=== PATIENT | male | born 1955 | race Asian ===

== ENCOUNTER 2018-07-11 21:24 | Emergency (ER) | payer OTHER ==
[~2018-07-11] VITALS: Ht 177.8 cm; Wt 118.4 kg
[2018-07-11 22:09] LABS: Hemoglobin 9.6 g/dL (13.5-17.5)
[2018-07-11 22:11] LABS: White Blood Cell 8.7 10^3/uL (4.4-10.8)
[2018-07-11 22:18] LABS: Hematocrit 28.4 % (41.0-53.0); Mean Corpuscular Hemoglobin 35.1 pg (28.0-32.0); Mean Corpuscular Volume 103.1 fL (80.0-100.0); Platelet Count (auto) 200 10^3/uL (140-450); Red Blood Cells 2.75 10^6/uL (4.5-5.90); Red Cell Distribution Width 17.2 % (11.8-14.3)
[2018-07-11 22:21] LABS: Basophils % (manual) 0 (0.0-2.0); Blast Cells 0; Metamyelocytes % 0; Myelocytes % 0; Promyelocytes % 0; Reactive Lymphocytes 0
[2018-07-11 22:29] LABS: Albumin 2.7 g/dL (3.4-5.0); Calcium 7.3 mg/dL (8.5-10.1); Magnesium 2.3 mg/dL (1.6-2.6)
[2018-07-11 22:31] LABS: INR 0.89 (0.9-1.15); Partial Thromboplastin Time 24.2 sec (23.78-33.04); Prothrombin Time 9.6 sec (9.27-12.13)
[2018-07-11 22:34] LABS: BUN/Creatinine Ratio 8.8; Bilirubin, Total 0.4 mg/dL (0.2-1.0); Total Protein 5.6 g/dL (6.4-8.2)
[2018-07-11 22:43] LABS: Band Neutrophils % (manual) 4; Eosinophils % (manual) 4 (0-7); Lymphocytes % (manual) 7 (10.0-50.0); Monocytes % (manual) 7 (0-12)
[2018-07-11] MEDS ORDERED: DEXTROSE (50%) 50ML SYRG IV ONE (23:00)
[2018-07-11] MEDS ORDERED: SODIUM POLYSTYRENE SULF 15GM/60ml SUSP or POWDER PO ONE (23:00)
[2018-07-11] MEDS ORDERED: CALCIUM GLUC 4.65meq/50ml D5AE 50 ML IV ONE (23:00)
[2018-07-11] MEDS ORDERED: SODIUM BICARBONATE 8.4 % INJ 50ML VIAL IV ONE (23:00)
[2018-07-11] MEDS ORDERED: InsuLIN REG 1unit/0.01ml Soln (100units/ml) IV ONE (23:00)
[2018-07-12 00:03] LABS: Urine Bacteria MANY /hpf (None Seen); Urine Blood 2+ /uL (Negative); Urine Specific Gravity 1.031 (1.001-1.035); Urine WBC 359 /hpf (0 - 3); Urine WBC Clumps PRESENT /hpf (None Seen)
[2018-07-12 00:09] LABS: Alcohol, Urine < 3.0 mg/dL (0-5); Amphetamine Screen, Urine NEGATIVE (NEGATIVE); Barbiturate Scree,Urine NEGATIVE (NEGATIVE); Benzodiazephine Screen, Urine NEGATIVE (NEGATIVE); Cannabinoid Screen, Urine NEGATIVE (NEGATIVE); Cocaine Screen, Urine NEGATIVE (NEGATIVE); Opiate Scree,Urine NEGATIVE (NEGATIVE); Phencyclidine Screen, Urine NEGATIVE (NEGATIVE)
[2018-07-12] MEDS ORDERED: cefTRIAXone 1GM/50ML D5W 50 ML IV ONE (00:30)
[2018-07-12] MEDS ORDERED: DEXTROSE 50% SYRINGE 50 ML IV ONE (00:47)
[2018-07-12] MEDS ORDERED: DEXTROSE (50%) 50ML SYRG IV ONE (02:00)
[2018-07-12 04:38] VITALS: BP 137/63
== END 2018-07-12 04:41 | disposition short-term general hospital (02) ==
LOC: EDBD 21:24 → ER 21:31
DX: R42 Dizziness and giddiness (principal); E87.5 Hyperkalemia; N39.0 Urinary tract infection, site not specified; E11.22 Type 2 diabetes mellitus with diabetic chronic kidney disease; I12.0 Hypertensive chronic kidney disease with stage 5 chronic kidney disease or end stage renal disease; N18.6 End stage renal disease; N17.9 Acute kidney failure, unspecified; J44.9 Chronic obstructive pulmonary disease, unspecified; I48.91 Unspecified atrial fibrillation; Z99.2 Dependence on renal dialysis; Z79.4 Long term (current) use of insulin
CPT/HCPCS: 36415; 70450; 71045; 80053; 80307; 81001; 82962; 83735; 83880; 84132; 84443; 84484; 85007; 85027; 85610; 85730; 93005; 96365; 96368; 96375; 96376; 99285; J0610; J0696; J1815; J7042

== ENCOUNTER 2018-10-13 14:31 | Emergency (ER) | payer OTHER ==
[~2018-10-13] VITALS: Ht 182.9 cm; Wt 117.9 kg
[2018-10-13 15:03] LABS: Basophils # (auto) 0.1 uL; Basophils % (auto) 1.3 % (0.0-2.0); Eosinophils # (auto) 0.3 uL; Eosinophils % (auto) 3.3 % (0.0-7.0); Hematocrit 38.9 % (41.0-53.0); Lymphocytes # (auto) 0.3 uL; Lymphocytes % (auto) 3.4 % (10.0-50.0); Mean Corpuscular Hemoglobin 33.3 pg (28.0-32.0); Mean Corpuscular Hgb Conc. 33.4 g/dL (32.0-36.0); Mean Corpuscular Volume 99.8 fL (80.0-100.0); Monocytes # (auto) 1.1 uL; Monocytes % (auto) 10.3 % (0.0-12.0); Neutrophils # (auto) 8.3 uL; Neutrophils % (auto) 81.7 % (37.0-80.0); Nucleated Red Blood Cells % 0.1 %; Platelet Count (auto) 271 10^3/uL (140-450); Red Cell Distribution Width 17.1 % (11.8-14.3); White Blood Cell 10.2 10^3/uL (4.4-10.8)
[2018-10-13 15:18] LABS: Albumin 3.2 g/dL (3.4-5.0); Anion Gap 13 (5-15); Blood Urea Nitrogen 38 mg/dL (7-18); Calcium 8.2 mg/dL (8.5-10.1); Carbon Dioxide 29 mmol/L (21-32); Chloride 93 mmol/L (98-107); Glucose 135 mg/dL (74-106); Potassium 3.1 mmol/L (3.5-5.1); Sodium 135 mmol/L (136-145)
[2018-10-13 15:20] LABS: Aspartate Aminotransferase 9 U/L (15-37); BUN/Creatinine Ratio 5.8; GFR African American 11 mL/min; GFR Non-African American 9 mL/min
[2018-10-13] MEDS ORDERED: SODIUM CHLORIDE 0.9% 500 ML IVB ONE (15:38)
[2018-10-13 15:59] LABS: Alanine Aminotransferase 21 U/L (16-61); Alkaline Phosphatase 63 U/L (45-117); Bilirubin, Total 0.5 mg/dL (0.2-1.0); Total Protein 7.7 g/dL (6.4-8.2)
[2018-10-13 16:11] LABS: INR 0.85 (0.9-1.15); Partial Thromboplastin Time 25.6 sec (23.64-32.05)
[2018-10-13 20:07] VITALS: BP 137/77
[2018-10-13] MEDS ORDERED: POTASSIUM CHL 20 Meq TABLET PO ONE (20:15)
== END 2018-10-13 20:21 | disposition short-term general hospital (02) ==
LOC: EDBD 14:31 → ER 14:36
DX: I12.0 Hypertensive chronic kidney disease with stage 5 chronic kidney disease or end stage renal disease (principal); E11.22 Type 2 diabetes mellitus with diabetic chronic kidney disease; N18.6 End stage renal disease; R79.89 Other specified abnormal findings of blood chemistry; M10.9 Gout, unspecified; D64.9 Anemia, unspecified; Z99.2 Dependence on renal dialysis; Z95.810 Presence of automatic (implantable) cardiac defibrillator
CPT/HCPCS: 36415; 70450; 71045; 80053; 82962; 83735; 84484; 85025; 85610; 85730; 93005; 94761; 96360; 99291

== ENCOUNTER 2019-04-06 09:53 | Emergency (ER) | payer OTHER ==
[~2019-04-06] VITALS: Ht 177.8 cm; Wt 117.9 kg
[2019-04-06] MEDS ORDERED: SODIUM CHLORIDE 0.9% 1,000 ML IV ONE (11:13)
[2019-04-06 11:31] LABS: Basophils # (auto) 0.1 uL; Eosinophils # (auto) 0.2 uL; Lymphocytes # (auto) 0.2 uL; Lymphocytes % (auto) 1.9 % (10.0-50.0); Monocytes # (auto) 1.3 uL; Neutrophils # (auto) 7.6 uL; Nucleated Red Blood Cells % 0.1 %
[2019-04-06 11:35] LABS: Basophils % (auto) 0.8 % (0.0-2.0); Eosinophils % (auto) 1.8 % (0.0-7.0); Hematocrit 35.3 % (41.0-53.0); Mean Corpuscular Hemoglobin 34.6 pg (28.0-32.0); Mean Corpuscular Volume 101.9 fL (80.0-100.0); Monocytes % (auto) 14.1 % (0.0-12.0); Neutrophils % (auto) 81.4 % (37.0-80.0); Platelet Count (auto) 181 10^3/uL (140-450); Red Blood Cells 3.46 10^6/uL (4.5-5.90); Red Cell Distribution Width 17.9 % (11.8-14.3); White Blood Cell 9.3 10^3/uL (4.4-10.8)
[2019-04-06 11:51] LABS: Albumin 3.2 g/dL (3.4-5.0); Calcium 8.2 mg/dL (8.5-10.1); Potassium 4.1 mmol/L (3.5-5.1)
[2019-04-06 11:57] LABS: BUN/Creatinine Ratio 3.9; Bilirubin, Total 0.8 mg/dL (0.2-1.0); Total Protein 6.8 g/dL (6.4-8.2)
[2019-04-06 15:43] VITALS: BP 118/63
== END 2019-04-06 15:43 | disposition home or self-care (01) ==
LOC: EDBD 09:53 → ER 09:58
DX: E11.22 Type 2 diabetes mellitus with diabetic chronic kidney disease (principal); I12.0 Hypertensive chronic kidney disease with stage 5 chronic kidney disease or end stage renal disease; N18.6 End stage renal disease; D63.1 Anemia in chronic kidney disease; E44.1 Mild protein-calorie malnutrition; F41.9 Anxiety disorder, unspecified; Z99.2 Dependence on renal dialysis; Z79.4 Long term (current) use of insulin; Z68.37 Body mass index [BMI] 37.0-37.9, adult; Z91.041 Radiographic dye allergy status
CPT/HCPCS: 36415; 70450; 71045; 80053; 83735; 84484; 85025; 93005; 96360; 96361

== ENCOUNTER 2024-09-30 08:32 | Inpatient (IN) | payer OTHER ==
[2024-09-30] VITALS (7 sets, daily range): BP systolic 150–152; BP diastolic 70–74; PULSE 66–74; RESP 12–18; TEMP 97.9–98.7; O2SAT 96–100
[~2024-09-30] VITALS: Ht 175.3 cm; Wt 99.8 kg
--- NOTE | 2024-09-30 09:08 | ED.PDOC ---
History of Present Illness HPI Comments 60 year old male presents to the ED via EMS with a chief complaint of syncope episode onset today (09/30/24). PMHx COPD, cancer, a-fib, DM, Hypotension, asthma. Patient gets dialysis Thursday, Thursday, Thursday. Per , patient finished dialysis treatment today, sat in the car when he experienced syncopal episode. informed dialysis staff, began compressions on patient when he woke up. Patient states he currently has no complaints. Denies chest pain, shortness of breath, dizziness, weakness, nausea, vomiting, abdominal pain, headache. No other symptoms or modifying factors present at this time. Chief Complaint: Syncope Time Seen by MD: 09:00 Reviewed Notes: Medications, Allergies Allergies: Coded Allergies: Iodine (Verified Allergy, Unknown, 08/14/15) Uncoded Allergies: CONTRAST (Allergy, Unknown, 12/11/15) Information Source: Patient, Emergency Med Personnel, Spouse Mode of Arrival: EMS Severity: Moderate Timing: Minutes Duration: Since onset Prehospital treatment: None Past Medical History PAST MEDICAL HISTORY: AFIB, Cancer, COPD, DM, ESRD, Hypotension Surgical History: Denies all surgeries Family History Family History: Reviewed,noncontributory to illness, No family hx of Cancer, No family hx of DM, No family hx of Heart korin, No family hx of HTN, No family hx ofKidney korin, No family hx of Liver korin, No family hx of Lung korin, No family hx of Stroke Social History Smoker: Non-Smoker Alcohol: Denies ETOH Use Drugs: Denies Drug Use Lives In: Home Constitutional: denies: chills, diaphoresis, fatigue, fever, malaise, sweats, weakness, others EENTM: denies: blurred vision, double vision, ear bleeding, ear discharge, ear drainage, ear pain, ear ringing, eye pain, eye redness, hearing loss, mouth pain, mouth swelling, nasal discharge, nose bleeding, nose congestion, nose pain, photophobia, tearing, throat pain, throat swelling, voice changes, others Respiratory: denies: cough, hemoptysis, orthopnea, SOB at rest, shortness of breath, SOB with excertion, stridor, wheezing, others Cardiovascular: denies: chest pain, dizzy spells, diaphoresis, Dyspnea on exertion, edema, irregular heart beat, left arm pain, lightheadedness, palpitations, PND, syncope, others Gastrointestinal: denies: abdomen distended, abdominal pain, blood streaked bowels, constipated, diarrhea, dysphagia, difficulty swallowing, hematemesis, melena, nausea, poor appetite, poor fluid intake, rectal bleeding, rectal pain, vomiting, others Genitourinary: denies: burning, dysuria, flank pain, frequency, hematuria, incontinence, penile discharge, penile sore, pain, testicle pain, testicle swelling, urgency, others Neurological: reports: others (syncope); denies: dizziness, fainting, headache, left sided numbness, left sided weakness, numbness, paresthesia, pre-existing deficit, right sided numbness, right sided weakness, seizure, speech problems, tingling, tremors, weakness Musculoskeletal: denies: back pain, gout, joint pain, joint swelling, muscle pain, muscle stiffness, neck pain, others Integumetry: denies: bruises, change in color, change in hair/nails, dryness, laceration, lesions, lumps, rash, wounds, others Allergic/Immunocompromised: denies: Difficulty Healing, Frequent Infections, Hives, Itching, others Hematologic/Lymphatic: denies: anemia, blood clots, easy bleeding, easy bruising, swollen glands, others Endocrine: denies: excessive hunger, excessive sweating, excessive thirst, excessive urination, flushing, intolerance to cold, intolerance to heat, unexplained weight gain, unexplained weight loss, others Psychiatric: denies: anxiety, bipolar disorder, depression, hopeless, panic disorder, schizophrenia, sleepless, suicidal, others All Other Systems: Reviewed and Negative Physical Exam General Appearance: No Apparent Distress, Normal HEENT: Normal ENT Inspection, Pharynx Normal, TMs Normal Neck: Full Range of Motion, Non-Tender, Normal, Normal Inspection Respiratory: Chest Non-Tender, Lungs Clear, No Accessory Muscle Use, No Respiratory Distress, Normal Breath Sounds Cardiovascular: No Edema, No JVD, No Murmur, No Gallop, Normal Peripheral Pulses, Regular Rate/Rhythm Breast Exam: Deferred Gastrointestinal: No Organomegaly, Non Tender, No Pulsatile Mass, Normal Bowel Sounds, Soft Genitalia: Deferred Pelvic: Deferred Rectal: Deferred Extremities: No calf tenderness, Normal capillary refill, Normal inspection, Normal range of motion, Non-tender, No pedal edema Musculoskeletal : Apperance: Normal Neurologic: Alert, smoking tobacco packer hand II-XII nml as Tested, No Motor Deficits, Normal Affect, Normal Mood, No Sensory Deficits Cerebellar Function: Normal Reflexes: Normal Skin: Dry, Normal Color, Warm Lymphatic: No Adenopathy Was a procedure done? Was a procedure done?: No Differential Dx Considerations may include: CVA, ACS, WI, electrolyte abnormality, infectious etiology, shock X-Ray, Labs, Meds, VS Vital Signs Date Time Temp Pulse Resp B/P (MAP) Pulse Ox O2 Delivery O2 Flow Rate FiO2 09/30/24 09:00 67 19 96/40 (58) 95 09/30/24 08:45 68 12 100 Room Air* 0 21 09/30/24 08:38 97.9 67 24 108/54 (72) 95 97.9 Lab Test 09/30/24 10:10 09/30/24 09:26 Range/Units Troponin I High Sensitivity 64 *H 76 *H </=54 ng/L White Blood Count 9.6 4.4-10.8 10^3/uL Red Blood Count 3.29 L 4.5-5.90 10^6/uL Hemoglobin 11.7 L 13.5-17.5 g/dL Hematocrit 34.6 L 41.0-53.0 % Mean Corpuscular Volume 105.0 H 80.0-100.0 fL Mean Corpuscular Hemoglobin 35.4 H 28.0-32.0 pg Mean Corpuscular Hemoglobin Concent 33.7 32.0-36.0 g/dL Red Cell Distribution Width 18.3 H 11.8-14.3 % Platelet Count 194 140-450 10^3/uL Mean Platelet Volume 8.4 6.9-10.8 fL Neutrophils (%) (Auto) 78.1 37.0-80.0 % Lymphocytes (%) (Auto) 3.1 L 10.0-50.0 % Monocytes (%) (Auto) 14.9 H 0.0-12.0 % Eosinophils (%) (Auto) 3.2 0.0-7.0 % Basophils (%) (Auto) 0.7 0.0-2.0 % Neutrophils # (Auto) 7.5 1.6-8.6 10 ^3/uL Lymphocytes # (Auto) 0.3 L 0.4-5.4 10 ^3/uL Monocytes # (Auto) 1.4 H 0-1.3 10 ^3/uL Eosinophils # (Auto) 0.3 0-0.8 10 ^3/uL Basophils # (Auto) 0.1 0-0.2 10 ^3/uL Nucleated Red Blood Cells 0.2 % Sodium Level 137 136-145 mmol/L Potassium Level 4.0 3.5-5.1 mmol/L Chloride Level 93 L 98-107 mmol/L Carbon Dioxide Level 33 H 20-31 mmol/L Anion Gap 11 5-15 Blood Urea Nitrogen 20 9-23 mg/dL Creatinine 4.56 H 0.700-1.30 mg/dL Glomerular Filtration Rate Calc 14 >90 mL/min BUN/Creatinine Ratio 4.4 L 10.0-20.0 Serum Glucose 176 H 74-106 mg/dL Lactic Acid Level 4.2 *H 0.4-2.0 mmol/L Calcium Level 10.1 8.7-10.4 mg/dL Time of 1ST Reevaluation: 09:30 Reevaluation 1ST: Unchanged Patient Education/Counseling: Diagnosis, Treatment, Prognosis Family Education/Counseling: Diagnosis, Treatment, Prognosis Additional Information The following tests were ordered, and results were reviewed by me: BMP, CBC, LA W/ REFLEX, TROP -x3, XY CHEST, CT HEAD WO CONTRAST Additional Information was gathered from interviewing the following independent historians: EMS, I reviewed and agreed with the following test results read by other providers: XY CHEST, CT HEAD WO CONTRAST I discussed treatment and results with medical personnel and: patient, Comprehensive systems review obtained and negative except for what is stated in the HPI. Departure 1 Departure Time of Disposition: 11:08 ([place] Authorization to Admit here: [id number] ient presents after CPR in the field. Patient hypotensive and unstable for transfer. Patient is dialysis patient had an clinically volume overload so we will not give a full fluid bolus. We will empirically cover patient with antibiotics and admit patient for further workup) Impression: Primary Impression: Syncope Qualified Codes: R55 - Syncope and collapse Additional Impressions: Hypotension Qualified Codes: I95.9 - Hypotension, unspecified Elevated lactic acid level Disposition: ADMITTED INPATIENT Admit to: [facility] Condition: Guarded Critical Care Note Critical Care Time?: Yes Critical care comment: Hypotension Authorized and Performed by: An Lopez MD Total critical care time: Approximately 37 minutes Due to a high probability of clinically significant, life threatening deterioration, the patient required my highest level of preparedness to intervene emergently and I personally spent this critical care time directly and personally managing the patient. This critical care time included obtaining a history; examining the patient; pulse oximetry; ordering and review of studies; arranging urgent treatment with development of a management plan; evaluation of patient's response to treatment; frequent reassessment; and, discussions with other providers. This critical care time was performed to assess and manage the high probability of imminent, life-threatening deterioration that could result in multi-organ failure. It was exclusive of separately billable procedures and treating other patients and teaching time. Please see my other sections and the rest of the note for further information on patient assessment and treatment. Stability Stability form required: No I personally scribed for AN LOPEZ MD ([email or web address]) on 09/30/24 at 09:08. Electronically submitted by Nargis Heck ([email or web address]). I personally scribed for AN LOPEZ MD ([email or web address]) on 09/30/24 at 09:09. Electronically submitted by Nargis Heck ([email or web address]). AN LOPEZ MD September 30, 2024 09:08
--- NOTE | 2024-09-30 09:28 | DVH ---
EXAM: XY CHEST PORTABLE Indication: syncope Technique: Single frontal view of the chest was obtained Comparison: None FINDINGS: Lines and Tubes: Cardiac pacemaker projects over the right chest wall. Lungs: No focal consolidation. Pleura: No effusion. No pneumothorax. Cardiomediastinal contours: Cardiomegaly. Bones: No acute osseous abnormality. Chronic deformity of the right shoulder. IMPRESSION: Cardiomegaly. No acute cardiopulmonary disease.
--- NOTE | 2024-09-30 09:34 | DVH ---
EXAM: CT HEAD WITHOUT CONTRAST HISTORY: syncope COMPARISON: None TECHNIQUE: Axial images of the head were obtained and reformatted in coronal and sagittal planes. All CT scans at this medical facility are performed using dose modulation techniques as appropriate t o a performed exam including the following: Automated exposure control was utilized; adjustment of th e MA and/or KV according to patient size; and use of iterative reconstruction technique. CT Dose: CTDI volume is 65 mGy. Dose-length product is 1234 mGy*cm FINDINGS: There is no evidence of acute intracranial hemorrhage, mass, mass effect midline shift. There is no h ydrocephalus or extra-axial fluid collection. Mathews-white matter differentiation is maintained. The visualized paranasal sinuses and mastoid air cells are clear. The calvarium is intact. IMPRESSION: 1. No acute intracranial process. HS:Y
[2024-09-30 09:45] LABS: Basophils # (auto) 0.1 10 ^3/uL (0-0.2); Basophils % (auto) 0.7 % (0.0-2.0); Eosinophils # (auto) 0.3 10 ^3/uL (0-0.8); Eosinophils % (auto) 3.2 % (0.0-7.0); Hematocrit 34.6 % (41.0-53.0); Hemoglobin 11.7 g/dL (13.5-17.5); Lymphocytes # (auto) 0.3 10 ^3/uL (0.4-5.4); Lymphocytes % (auto) 3.1 % (10.0-50.0); Mean Corpuscular Hemoglobin 35.4 pg (28.0-32.0); Mean Corpuscular Hgb Conc. 33.7 g/dL (32.0-36.0); Monocytes # (auto) 1.4 10 ^3/uL (0-1.3); Monocytes % (auto) 14.9 % (0.0-12.0); Neutrophils # (auto) 7.5 10 ^3/uL (1.6-8.6); Neutrophils % (auto) 78.1 % (37.0-80.0); Nucleated Red Blood Cells % 0.2 %; Platelet Count (auto) 194 10^3/uL (140-450); Red Blood Cells 3.29 10^6/uL (4.5-5.90); Red Cell Distribution Width 18.3 % (11.8-14.3); White Blood Cell 9.6 10^3/uL (4.4-10.8)
[2024-09-30 10:01] LABS: Sodium 137 mmol/L (136-145)
[2024-09-30 10:02] LABS: Calcium 10.1 mg/dL (8.7-10.4)
[2024-09-30 10:04] LABS: Anion Gap 11 (5-15); Carbon Dioxide 33 mmol/L (20-31); Chloride 93 mmol/L (98-107)
[2024-09-30 10:07] LABS: BUN/Creatinine Ratio 4.4 (10.0-20.0); Blood Urea Nitrogen 20 mg/dL (9-23)
[2024-09-30 10:19] LABS: Glucose 176 mg/dL (74-106)
[2024-09-30 10:29] LABS: Lactic Acid w/Reflex 4.2 mmol/L (0.4-2.0)
[2024-09-30] MEDS: VANCOMYCIN 1GM/200ML PM 200 ML IV ONE (11:16)
[2024-09-30] MEDS: SODIUM CHLORIDE 0.9% 1,000 ML IV ONE (11:18)
[2024-09-30] MEDS: SODIUM CHLORIDE 0.9% 500 ML IV ONE (11:55)
[2024-09-30] MEDS: CEFEPIME 2GM/50ML NS 50 ML IV ONE (12:30)
[2024-09-30] MEDS ORDERED: ONDANSETRON HCL 4 MG/2 ML VIAL IV PRN (14:15)
[2024-09-30] MEDS ORDERED: MORPHINE SULFATE INJ 2 MG/ml SYRG IV PRN (14:15)
[2024-09-30] MEDS ORDERED: ACETAMINOPHEN 325 MG TAB PO PRN (14:15)
[2024-09-30] MEDS ORDERED: DEXTROSE (50%) 50ML SYRG IV PRN (14:15)
[2024-09-30] MEDS ORDERED: VANCOMYCIN PER PHARMACY 0 MG IV SCH (14:15)
[2024-09-30] MEDS ORDERED: NITROGLYCERIN 0.4 MG SL TAB SL PRN (14:15)
--- NOTE | 2024-09-30 14:28 | DVHHP2 ---
History of Present Illness Reason for Visit: Syncope History of Present Illness Bro Persaud is a 69-year-old male with past medical history of hypertension, diabetes type 2, COPD, AFib, CHF, ESRD on HD (M/W/F), colon cancer status post resection, and pacemaker who presents to the ED with a syncopal episode in the car after receiving dialysis today. Patient states that he thinks that 2.7 L was pulled out. Sylvia is at the bedside. Patient reports that he was sitting in the car in the passenger seat when he passed out with no strike to the head. Patient's says that she was driving. Patient denies any chest pain, fever, chills, weakness, dizziness, recent trauma or injury, recent sick contacts, recent travels, abdominal pain, nausea, vomiting, or diarrhea. Cardiovascular: AFIB, CHF, HTN Pulmonary: COPD Renal/: Chronic renal failure Endocrine: Diabetes Past Medical History Colon cancer Past Surgical History: Other (Colon resection and pacemaker) Family History: DM, Other (Dad with diabetes and mom with lung issues) Smoke: No ALCOHOL: none Drugs: None Lives: with Family Domestic Violence: Neg Review of Systems Constitutional: Yes: Other Allergies: Coded Allergies: Iodine (Verified Allergy, Unknown, 08/14/15) Uncoded Allergies: CONTRAST (Allergy, Unknown, 12/11/15) Exam Vital Signs Vital Signs Date Time Temp Pulse Resp B/P (MAP) Pulse Ox O2 Delivery O2 Flow Rate FiO2 09/30/24 11:00 66 17 140/82 (101) 99 09/30/24 08:45 Room Air* 0 21 09/30/24 08:38 97.9 97.9 General Appearance: Alert, Oriented X3, Cooperative, No acute distress HEENT: Atraumatic, PERRLA, EOMI, Mucous membr. moist/pink Respiratory: Clear to auscultation, Normal air movement Cardiovascular: Normal S1, Normal S2, No murmurs Abdominal: Normal bowel sounds, Soft, No tenderness Extremities: No clubbing, No cyanosis, Normal pulses Skin: No significant lesion Neuro: Normal speech, Strength at 5/5 X4 ext, Normal tone, Sensation intact Psych/Mental Status: Mental status NL, Mood NL Labs/Xrays Labs Test 09/30/24 12:10 09/30/24 09:26 Range/Units Lactic Acid Level 2.3 *H 0.4-2.0 mmol/L Troponin I High Sensitivity 71 *H </=54 ng/L White Blood Count 9.6 4.4-10.8 10^3/uL Red Blood Count 3.29 L 4.5-5.90 10^6/uL Hemoglobin 11.7 L 13.5-17.5 g/dL Hematocrit 34.6 L 41.0-53.0 % Mean Corpuscular Volume 105.0 H 80.0-100.0 fL Mean Corpuscular Hemoglobin 35.4 H 28.0-32.0 pg Mean Corpuscular Hemoglobin Concent 33.7 32.0-36.0 g/dL Red Cell Distribution Width 18.3 H 11.8-14.3 % Platelet Count 194 140-450 10^3/uL Mean Platelet Volume 8.4 6.9-10.8 fL Neutrophils (%) (Auto) 78.1 37.0-80.0 % Lymphocytes (%) (Auto) 3.1 L 10.0-50.0 % Monocytes (%) (Auto) 14.9 H 0.0-12.0 % Eosinophils (%) (Auto) 3.2 0.0-7.0 % Basophils (%) (Auto) 0.7 0.0-2.0 % Neutrophils # (Auto) 7.5 1.6-8.6 10 ^3/uL Lymphocytes # (Auto) 0.3 L 0.4-5.4 10 ^3/uL Monocytes # (Auto) 1.4 H 0-1.3 10 ^3/uL Eosinophils # (Auto) 0.3 0-0.8 10 ^3/uL Basophils # (Auto) 0.1 0-0.2 10 ^3/uL Nucleated Red Blood Cells 0.2 % Sodium Level 137 136-145 mmol/L Potassium Level 4.0 3.5-5.1 mmol/L Chloride Level 93 L 98-107 mmol/L Carbon Dioxide Level 33 H 20-31 mmol/L Anion Gap 11 5-15 Blood Urea Nitrogen 20 9-23 mg/dL Creatinine 4.56 H 0.700-1.30 mg/dL Glomerular Filtration Rate Calc 14 >90 mL/min BUN/Creatinine Ratio 4.4 L 10.0-20.0 Serum Glucose 176 H 74-106 mg/dL Calcium Level 10.1 8.7-10.4 mg/dL EXAM: CT HEAD WITHOUT CONTRAST HISTORY: syncope COMPARISON: None TECHNIQUE: Axial images of the head were obtained and reformatted in coronal and sagittal planes. All CT scans at this medical facility are performed using dose modulation techniques as appropriate to a performed exam including the following: Automated exposure control was utilized; adjustment of the MA and/or KV according to patient size; and use of iterative reconstruction technique. CT Dose: CTDI volume is 65 mGy. Dose-length product is 1234 mGy*cm FINDINGS: There is no evidence of acute intracranial hemorrhage, mass, mass effect midline shift. There is no hydrocephalus or extra-axial fluid collection. Mathews-white m atter differentiation is maintained. The visualized paranasal sinuses and mastoid air cells are clear. The calvarium is intact. IMPRESSION: 1. No acute intracranial process. EXAM: XY CHEST PORTABLE Indication: syncope Technique: Single frontal view of the chest was obtained Comparison: None FINDINGS: Lines and Tubes: Cardiac pacemaker projects over the right chest wall. Lungs: No focal consolidation. Pleura: No effusion. No pneumothorax. Cardiomediastinal contours: Cardiomegaly. Bones: No acute osseous abnormality. Chronic deformity of the right shoulder. IMPRESSION: Cardiomegaly. No acute cardiopulmonary disease. Assessment/Plan Assessment/Plan Assessment Autonomic imbalance Lactic acidosis rule out sepsis Cardiomegaly Anemia Pacemaker V paced ESRD on HD (M/W/F) History of hypertension History of diabetes type 2 History of COPD History of AFib History of CHF History of hypotension History of colon cancer status post colon resection Plan Admit to tele Chest x-ray noted Troponins noted NS 1.5 L given ED Strict I&Os Daily weights IV antibiotics-cefepime + vancomycin EKG Blood cultures CT head noted Lactic level Hemoglobin A1c ISS and Accu-Cheks Diet Echo ordered Home medications reconciled DVT prophylaxis-not indicated patient ambulating PUD prophylaxis-PPIs Discussed plan of care with patient, patient's spouse, and nurse Nephro consult Plan discussed with: Patient, Spouse My Orders Orders - GILMA GRAY Procedure Category Date Status Time *[facility] CONS 09/30/24 Verified Maylin 14:12 Hemoglobin A1c LAB 09/30/24 Verified 14:12 Glucose Blood PHA 09/30/24 Verified (Accu-Chek Comfort 17:00 Mild Sliding Scale PHA 09/30/24 Verified 17:00 Dextrose 50% Syringe PHA 09/30/24 Verified 14:15 Echo 2d Mode Cardiac US 09/30/24 Verified DOP 14:12 Cefepime 1 Gm PHA 10/01/24 Verified 10:00 Vancomycin Per PHA 09/30/24 Verified Pharmacy 14:15 Admit ADMIT 09/30/24 Verified 14:12 Allergies LAKEISHA 09/30/24 Verified 14:12 Code Status CODE 09/30/24 Verified 14:12 Renal DIET 09/30/24 Verified Standard(2gna,3gk,Lopho) Dinner Ondansetron Hcl PHA 09/30/24 Verified (Zofran) 14:15 Complete Blood Count LAB 10/01/24 Verified 04:00 Comprehensive LAB 10/01/24 Verified Metabolic Panel 04:00 Acetaminophen Tablet PHA 09/30/24 Verified (Tylenol Tablet) 14:15 Sequential [facility]ISHA 09/30/24 Verified Compression Device Nitroglycerin [facility] 09/30/24 Verified Sublingual (Ntrostat 14:15 Morphine Sulfate PHA 09/30/24 Verified Injection 14:15 Stat Ekg For Chest [facility] 09/30/24 Verified Pain 14:12 Notify Md Of Changes [facility] 09/30/24 Verified From Base 14:12 Stockroom Selector For [facility] 09/30/24 Verified 24 Hours 14:12 Emergency Dysrhythmia [facility] 09/30/24 Verified Protocol 14:12 Rhythm Strips Once [facility] 09/30/24 Verified Every Shift 14:12 Oxygen By Nasal RT 09/30/24 Verified Cannula 14:12 Date of Service: September 30, 2024 Billing Provider: GILMA GRAY Common Visit Codes: [id number] INP/OBS CARE (HIGH) GILMA GRAY September 30, 2024 14:28
[2024-09-30] MEDS ORDERED: ALBUTEROL SULF 2.5 MG/0.5ML(0.5%) NEB SOLN NEB PRN (17:45)
[2024-09-30] MEDS: ACCU-CHEK COMFORT CURVE STRIP VI SCH (18:37)
[2024-09-30] MEDS: SEVELAMER 800 MG TAB PO SCH (18:37)
[2024-09-30] MEDS: InsuLIN REG 1unit/0.01ml Soln (100units/ml) SC SCH (18:45)
--- NOTE | 2024-09-30 18:49 | ECG ---
[facility] Test Date: 2024-09-30 Test Time: 08:32:10 Pat Name: RYLEY NOLAN Department: ED Room: 0217T A Gender: M Solar Sales Representative And Assessor: TRESSA : 1955 Requested By: AN NEVAREZ Order Number: [id number] Reading MD: Smooth Henderson Measurements Intervals [place]ella Rate: 66 P: 0 KS: 244 QRS: 262 QRSD: 185 T: 81 QT: 484 QTc: 508 Interpretive Statements Ventricular-paced rhythm No further analysis attempted due to paced rhythm Electronically Signed On 10-01-2024 21:02:03 PDT by Smooth Henderson Please click the below link to view image of tracing.
[2024-09-30] MEDS ORDERED: ZOFR4T PO (19:04)
[2024-09-30] MEDS ORDERED: TIOT1AER2 IN (19:08)
[2024-09-30] MEDS ORDERED: FAMO20TA10 PO (19:08)
[2024-09-30] MEDS ORDERED: FLUT1AER6 IN (19:08)
[2024-09-30] MEDS ORDERED: PRE1T PO (19:08)
[2024-09-30] MEDS ORDERED: SEVE800T8 PO (19:08)
[2024-09-30] MEDS ORDERED: BISO5TAB44 PO (19:30)
[2024-09-30] MEDS ORDERED: INSREG3 SC (19:30)
[2024-09-30] MEDS ORDERED: ATOR40TA52 PO (19:30)
[2024-09-30] MEDS ORDERED: CINA30TA2 PO (19:30)
[2024-09-30] MEDS ORDERED: CALC667C PO (19:30)
[2024-09-30] MEDS ORDERED: NALO4SPR2 (19:30)
[2024-09-30] MEDS ORDERED: DEXA4TAB PO (19:30)
[2024-09-30] MEDS ORDERED: ALLO100T PO (19:30)
[2024-09-30] MEDS ORDERED: LORA-1123 PO (19:30)
[2024-09-30] MEDS ORDERED: NIFE90TA75 PO (19:30)
[2024-09-30] MEDS ORDERED: DIPH25CA51 PO (19:30)
[2024-09-30] MEDS ORDERED: ALBUAER3 IN (19:30)
[2024-09-30] MEDS: BUDESONIDE (INHALATION) 0.5 MG/2 ML NEB NEB SCH (22:40)
--- NOTE | 2024-09-30 22:54 | DVHSR ---
APPROVED REPORT EXAM: Two-dimensional and M-mode echocardiogram with Doppler and color Doppler. Blood Pressure: 140/82 mmHg INDICATION Syncope RISK FACTORS Height: 67, Weight: 200 DIMENSIONS LVDd5.6 (3.8-5.7cm)LA (2D)4.7 (1.9-4.0cm)Aortic Root4.1 (2.0-3.7cm) LVDs4.2 (2.5-4.0cm)LA (MM) (1.9-4.0cm)Aortic Cusp Exc1.9 (1.5-2.0cm) EF (%) 50.0 (55-70%)Rt. Atrium (1.9-4.0cm)Asc. Aorta cm IVSd1.5 (0.7-1.1cm)RV (D) (1.8-2.4cm) PWd1.5 (0.7-1.1cm) Mitral Valve MitralMitral Stenosis E wave0.71m/sMV Mean GR.mmHg A wave1.02m/sMV Peak GR.160mmHg E/A ratio0.72D MVAcm2 DECEL [id number] 1/2 [id number] IVRTmsDop MVA3.05cm2 Aortic Valve Aortic ValveAortic Stenosis V11.59m/Corry Mean GR.7mmHg V21.89m/Corry Peak GR.14mmHg LVOT Diameter2.4 (1.8-2.4cm)Doppler AVA3.80cm2 Pulmonic Valve V21.11m/s Tricuspid Valve TR Velocity2.35m/s [id number] Conclusion Technically good study. Sinus rhythm. Concentric LVH with left atrial enlargement and aortic root e nlargement. Valves are normal. Mild aortic sclerosis EF is 45% with global hypokinesis. Normal RV function. Doppler reveals moderate TR. Moderate MR. No pericardial effusion masses or vegetations.
[2024-10-01] VITALS (9 sets, daily range): BP systolic 111–156; BP diastolic 51–85; PULSE 68–73; RESP 16–18; TEMP 97.5–98.7; O2SAT 92–99
[2024-10-01 06:44] LABS: Eosinophils # (auto) 0.5 10 ^3/uL (0-0.8); Eosinophils % (auto) 6.2 % (0.0-7.0); Hematocrit 33.4 % (41.0-53.0); Lymphocytes # (auto) 0.4 10 ^3/uL (0.4-5.4); Monocytes # (auto) 1.4 10 ^3/uL (0-1.3); Nucleated Red Blood Cells % 0.1 %; Red Blood Cells 3.19 10^6/uL (4.5-5.90); Red Cell Distribution Width 18.1 % (11.8-14.3)
[2024-10-01 06:46] LABS: Basophils # (auto) 0.2 10 ^3/uL (0-0.2); Basophils % (auto) 1.9 % (0.0-2.0); Hemoglobin 11.1 g/dL (13.5-17.5); Lymphocytes % (auto) 4.4 % (10.0-50.0); Mean Corpuscular Hemoglobin 34.9 pg (28.0-32.0); Mean Corpuscular Hgb Conc. 33.3 g/dL (32.0-36.0); Mean Corpuscular Volume 104.8 fL (80.0-100.0); Monocytes % (auto) 17.4 % (0.0-12.0); Neutrophils # (auto) 5.6 10 ^3/uL (1.6-8.6); Neutrophils % (auto) 70.1 % (37.0-80.0); Platelet Count (auto) 185 10^3/uL (140-450); White Blood Cell 8.1 10^3/uL (4.4-10.8)
[2024-10-01 07:10] LABS: Alanine Aminotransferase 21 U/L (7-40); Alkaline Phosphatase 70 U/L (46-116); Anion Gap 14 (5-15); BUN/Creatinine Ratio 5.7 (10.0-20.0); Calcium 10.2 mg/dL (8.7-10.4); Potassium 4.5 mmol/L (3.5-5.1); Sodium 140 mmol/L (136-145); Total Protein 5.8 g/dL (5.7-8.2)
[2024-10-01 07:11] LABS: Albumin 3.8 g/dL (3.2-4.8); Aspartate Aminotransferase 17 U/L (13-40); Bilirubin, Total 0.5 mg/dL (0.2-1.0)
[2024-10-01 07:18] LABS: Blood Urea Nitrogen 39 mg/dL (9-23); Carbon Dioxide 31 mmol/L (20-31); Chloride 95 mmol/L (98-107); Glucose 116 mg/dL (74-106)
[2024-10-01] MEDS ORDERED: SODIUM CHL 0.9% 1000 ML BAG XX ONE (09:45)
[2024-10-01] MEDS: LISINOPRIL 20 MG TAB PO SCH (10:00)
[2024-10-01] MEDS: NIFEdipine ER 30 MG TAB PO SCH (10:00)
[2024-10-01] MEDS: CEFEPIME 1GM/ 50ML 50 ML IV SCH (10:34)
--- NOTE | 2024-10-01 15:34 | DVHPN2 ---
Subjective 69-year-old male with a history of end-stage renal disease who had his dialysis done yesterday and when he was ready to go home and get in the car he passed out and had a syncopal episode He says this has happened before twice or 3 times before usually after dialysis On admission here yesterday his blood pressure was low at 96/40 He feels better today Changes from previous H/P or p: Changes Objective Vitals Vital Signs Date Time Temp Pulse Resp B/P (MAP) Pulse Ox O2 Delivery O2 Flow Rate FiO2 10/01/24 13:00 97.5 68 17 111/51 (71) 92 97.5 10/01/24 08:00 Room Air* 0 21 Intake/Output Intake and Output 10/01/24 07:00 Intake Total 1150.0 ml Output Total 0 ml Balance 1150.0 ml Intake Oral 400 ml IV Total 750.0 ml Output Urine Total 0 ml General Appearance: Alert, Oriented X3, Cooperative Lungs: Clear to auscultation, Normal air movement Cardiovascular: Regular rate, Normal S1, Normal S2 Abdomen: Normal bowel sounds, Soft, No tenderness Extremities: No edema Medications Current Medications Medications Dose Ordered Sig/Beto Route Start Time Stop Time Status Last Admin Dose Admin Diagnostic Test (Pha) 1 strip ACHS 09/30/24 17:00 10/01/24 11:48 1 STRIP Insulin Human Regular ACHS SC 09/30/24 17:00 10/01/24 11:58 4 UNITS Dextrose 50 ml UD PRN IV 09/30/24 14:15 Cefepime HCl 50 ml @ 12.5 mls/hr DAILY IV 10/01/24 10:00 10/01/24 10:34 12.5 MLS/HR Vancomycin HCl 0 ml @ 0 mls/hr UD IV 09/30/24 14:15 Ondansetron HCl 4 mg Q4HP PRN IV 09/30/24 14:15 Acetaminophen 650 mg Q6HP PRN PO 09/30/24 14:15 Nitroglycerin 0.4 mg Q5MINP PRN SL 09/30/24 14:15 Morphine Sulfate 2 mg Q30M PRN IV 09/30/24 14:15 Lisinopril 20 mg DAILY PO 10/01/24 10:00 Nifedipine 90 mg DAILY PO 10/01/24 10:00 Sevelamer HCl 800 mg TIDWM PO 09/30/24 18:00 10/01/24 12:52 800 MG Budesonide 0.5 mg BID NEB 09/30/24 22:00 Albuterol 2.5 mg Q4HPRN PRN NEB 09/30/24 17:45 Laboratory Results Laboratory Tests 10/01/24 05:28 Chemistry Test 10/01/24 05:28 Albumin 3.8 g/dL (3.2-4.8) Calcium Level 10.2 mg/dL (8.7-10.4) Total Protein 5.8 g/dL (5.7-8.2) LFT Test 10/01/24 05:28 Alanine Aminotransferase (ALT) 21 U/L (7-40) Alkaline Phosphatase 70 U/L (46-116) Aspartate Amino Transferase (AST) 17 U/L (13-40) Total Bilirubin 0.5 mg/dL (0.2-1.0) Microbiology Microbiology Date/Time Source Procedure Growth Status 09/30/24 20:47 Nose MRSA Screen - Final Complete 09/30/24 12:20 Blood Blood Culture - Preliminary NO GROWTH AFTER 24 HOURS OF INCUBATION. Resulted Assessment/Plan Assessment/Plan Syncope due to hypotension Hypotension most likely due to a dry state due to dialysis End-stage renal disease on hemodialysis Chronic anemia of chronic kidney disease History of Hypertension Type 2 diabetes COPD AFib History of colon cancer Cardiomegaly Plan Discontinue IV antibiotics, no evidence of infection Consult Nephrology Hemodialysis per nephrology Discontinue lisinopril and nifedipine for now until his blood pressure is better IV fluids were given in the emergency room, no need for more Blood cultures are pending Negative for MRSA Full code Advance directives discussed for 21 minutes Not stable for transfer to [place] yet Plan discussed with: Patient My Orders Orders - YARIEL STOCK MD Procedure Category Date Status Time Pt Request For Service PT 10/01/24 Logged 15:28 Date of Service: October 01, 2024 Billing Provider: YARIEL STOCK MD Common Visit Codes: [id number] INP/OBS CARE(HIGH) Secondary Visit Codes: [id number] CARE PLAN 30 MINUTES YARIEL STOCK MD October 01, 2024 15:34
--- NOTE | 2024-10-02 01:57 | DVHINCON2 ---
DATE OF CONSULTATION: 10/01/2024 CONSULTING PHYSICIAN: TYRA Banks REASON FOR CONSULTATION: Management of dialysis. HISTORY OF PRESENT ILLNESS: The patient is a 69-year-old gentleman who is well known to me. He is one of our chronic dialysis patients in clinic. He received his dialysis yesterday. However, after his treatment he had a syncopal episode. They called an ambulance. He had to be transferred to the hospital. Prior to syncope, he denied any chest pain, palpitations, or diaphoresis. He is now being admitted for observation. Currently, his vitals have been stable and he is asymptomatic. PAST MEDICAL HISTORY: Significant for longstanding hypertension, COPD, atrial fibrillation, coronary artery disease, congestive heart failure, end-stage renal disease, anemia, hyperparathyroidism. He also has a history of colon cancer, status post surgery. SOCIAL HISTORY: The patient denies smoking cigarettes and drinking alcohol. FAMILY HISTORY: Noncontributory. MEDICATIONS AT HOME: Include nifedipine, lisinopril, sevelamer, insulin, nitroglycerin, acetaminophen. PHYSICAL EXAMINATION: VITAL SIGNS: Blood pressure is 133/55, heart rate 72, respirations 17, and temperature 98. GENERAL: The patient is in no acute distress, alert and oriented x 3. HEENT: Unremarkable. NECK: There is no jugular venous distention. No palpable thyroid or lymphadenopathy. LUNGS: Clear to auscultation bilaterally. CARDIOVASCULAR: Regular rate. There is no gallop. There is 1/6 systolic murmur. ABDOMEN: Soft. Nontender. Bowel sounds are normal in intensity and frequency. There is no organomegaly. No ascites. EXTREMITIES: No clubbing or cyanosis. There is no edema. NEUROLOGIC: Nonfocal. SKIN: Unremarkable. LABORATORY FINDINGS: His sodium is 140, potassium 4.5, creatinine 6.86, . ASSESSMENT AND PLAN: * End-stage renal disease. * Syncope, likely related to ultrafiltration with dialysis although he did not have any unusually high amount of fluid removed. He has been admitted for observation and telemetry. He needs a Cardiology evaluation. * Anemia of renal disease is at target range. * There are no electrolyte imbalances. * Diabetes seems to be well controlled. There is no need for dialysis today or tomorrow. We will continue with his schedule of Thursday, Thursday, [place]. If he is here in the hospital still by Thursday, we will dialyze him here. Thank you for the consultation. MD EFREN Shaver/NIURKA/DOMINIQUE TID: [id number] RECEIPT: [id number]
[2024-10-02 05:00] VITALS: BP 155/47; PULSE 69; RESP 18; TEMP 98.2; O2SAT 98
[2024-10-02 06:51] VITALS: O2SAT 99
[2024-10-02 08:00] VITALS: PULSE 74
[2024-10-02 08:50] VITALS: BP 145/54; PULSE 67; RESP 16; TEMP 98.2; O2SAT 99
[2024-10-02 08:50] LABS: Anion Gap 15 (5-15); Carbon Dioxide 29 mmol/L (20-31); Potassium 5.1 mmol/L (3.5-5.1); Sodium 139 mmol/L (136-145)
[2024-10-02 08:56] LABS: BUN/Creatinine Ratio 6.9 (10.0-20.0)
[2024-10-02 08:57] LABS: Blood Urea Nitrogen 66 mg/dL (9-23); Calcium 10.6 mg/dL (8.7-10.4); Chloride 95 mmol/L (98-107); Glucose 166 mg/dL (74-106)
--- NOTE | 2024-10-02 13:13 | DVHPN2 ---
Progress Note - Dictate Date Seen: October 02, 2024 Medical Necessity Reason Pt with a Central, PICC or Fol: No Subjective no new symptoms vital signs Vital Sign Date Time Temp Pulse Resp B/P (MAP) Pulse Ox O2 Delivery O2 Flow Rate FiO2 10/02/24 08:50 98.2 67 16 145/54 (84) 99 98.2 10/02/24 08:05 Room Air* 0 21 Total Intake and Output 10/01/24 10/01/24 10/02/24 15:00 23:00 07:00 Intake Total 650 ml 140 ml Balance 650 ml 140 ml medications Current Medications Medications Dose Ordered Sig/Beot Route Start Time Stop Time Status Last Admin Dose Admin Diagnostic Test (Pha) 1 strip ACHS 09/30/24 17:00 10/02/24 11:30 1 STRIP Insulin Human Regular ACHS SC 09/30/24 17:00 10/02/24 11:46 3 UNITS Dextrose 50 ml UD PRN IV 09/30/24 14:15 Ondansetron HCl 4 mg Q4HP PRN IV 09/30/24 14:15 Acetaminophen 650 mg Q6HP PRN PO 09/30/24 14:15 Nitroglycerin 0.4 mg Q5MINP PRN SL 09/30/24 14:15 Morphine Sulfate 2 mg Q30M PRN IV 09/30/24 14:15 Sevelamer HCl 800 mg TIDWM PO 09/30/24 18:00 10/02/24 11:46 800 MG Budesonide 0.5 mg BID NEB 09/30/24 22:00 Albuterol 2.5 mg Q4HPRN PRN NEB 09/30/24 17:45 objective Gen: NAD HEENT: NC, AT Lungs: CTA b/l cardiac: RRR, no murmur Abd: soft, no distention Neuro: AAOx3 Ext: no edema laboratory and microbiology Laboratory Tests 10/02/24 06:45 10/01/24 05:28 Test 10/02/24 06:45 Range/Units Serum Glucose 166 H 74-106 mg/dL Assessment/Plan End-stage renal disease on HD Syncope, likely related to ultrafiltration with dialysis although he did not have any unusually high amount of fluid removed. Chronic systolic CHF (EF: 45%) moderate TR moderate MR Anemia of renal disease is at target range. Diabetes Plan: Next HD on Thursday HD schedule: MWF [facility] post HD as needed. goal Hb: 10-11 g/dl cardiology consult Plan discussed with: Patient EDWARD GILES MD October 02, 2024 13:13
--- NOTE | 2024-10-02 13:34 | DVHDS2 ---
Discharge Summary Date of Admission September 30, 2024 at 14:12 Date of Discharge: October 02, 2024 Labs/Diagnostic Data: Laboratory Results Test 10/02/24 11:16 10/02/24 06:45 10/01/24 05:28 09/30/24 18:34 POC Glucose 196 mg/dl (70-106) Sodium Level 139 mmol/L (136-145) Potassium Level 5.1 mmol/L (3.5-5.1) Chloride Level 95 mmol/L (98-107) Carbon Dioxide Level 29 mmol/L (20-31) Anion Gap 15 (5-15) Blood Urea Nitrogen 66 mg/dL (9-23) Creatinine 9.56 mg/dL (0.700-1.30) Glomerular Filtration Rate Calc 5 mL/min (>90) BUN/Creatinine Ratio 6.9 (10.0-20.0) Serum Glucose 166 mg/dL (74-106) Calcium Level 10.6 mg/dL (8.7-10.4) White Blood Count 8.1 10^3/uL (4.4-10.8) Red Blood Count 3.19 10^6/uL (4.5-5.90) Hemoglobin 11.1 g/dL (13.5-17.5) Hematocrit 33.4 % (41.0-53.0) Mean Corpuscular Volume 104.8 fL (80.0-100.0) Mean Corpuscular Hemoglobin 34.9 pg (28.0-32.0) Mean Corpuscular Hemoglobin Concent 33.3 g/dL (32.0-36.0) Red Cell Distribution Width 18.1 % (11.8-14.3) Platelet Count 185 10^3/uL (140-450) Mean Platelet Volume 8.8 fL (6.9-10.8) Neutrophils (%) (Auto) 70.1 % (37.0-80.0) Lymphocytes (%) (Auto) 4.4 % (10.0-50.0) Monocytes (%) (Auto) 17.4 % (0.0-12.0) Eosinophils (%) (Auto) 6.2 % (0.0-7.0) Basophils (%) (Auto) 1.9 % (0.0-2.0) Neutrophils # (Auto) 5.6 10 ^3/uL (1.6-8.6) Lymphocytes # (Auto) 0.4 10 ^3/uL (0.4-5.4) Monocytes # (Auto) 1.4 10 ^3/uL (0-1.3) Eosinophils # (Auto) 0.5 10 ^3/uL (0-0.8) Basophils # (Auto) 0.2 10 ^3/uL (0-0.2) Nucleated Red Blood Cells 0.1 % Total Bilirubin 0.5 mg/dL (0.2-1.0) Aspartate Amino Transferase (AST) 17 U/L (13-40) Alanine Aminotransferase (ALT) 21 U/L (7-40) Alkaline Phosphatase 70 U/L (46-116) Total Protein 5.8 g/dL (5.7-8.2) Albumin 3.8 g/dL (3.2-4.8) Random Vancomycin Level 15.8 ug/mL (5-10) Test 09/30/24 12:10 09/30/24 09:26 Lactic Acid Level 2.3 mmol/L (0.4-2.0) Troponin I High Sensitivity 71 ng/L (</=54) Hemoglobin A1c 7.0 % A1C (<5.7) Other Laboratory Tests 10/02/24 06:45 10/01/24 05:28 Brief Hx & Hospital Course: Final diagnoses: Syncope due to hypotension Hypotension most likely due to a dry state due to dialysis End-stage renal disease on hemodialysis Chronic anemia of chronic kidney disease History of Hypertension Type 2 diabetes COPD AFib History of colon cancer Cardiomegaly 69-year-old male who was admitted after he came from dialysis he passed out while trying to get in the car He was admitted here in his blood pressure was low at 96/40 He was on lisinopril and nifedipine which were held here during this admission His kidney function was stable with a creatinine of 4.5 and it is 9.5 today with a potassium of 5.1 Lactic acid was 4.2 and the repeat was 2.3 Today he is asymptomatic His troponin was slightly elevated at 76 and 64 and 71 Today he is ambulating with no difficulty, he denies any dizziness or lightheadedness He feels back to his normal and would like to go home Follow up with dialysis as scheduled on Thursday and Saturday Resume home medications Condition at Discharge: Stable Final Diagnosis/Problems List Syncope due to hypotension Hypotension most likely due to a dry state due to dialysis End-stage renal disease on hemodialysis Chronic anemia of chronic kidney disease History of Hypertension Type 2 diabetes COPD AFib History of colon cancer Cardiomegaly Discharge Disposition: Home SNF Discharge Will this Physician continue t: No Discharge Instruct/Medications Diet: Renal Activity: No Restrictions, As Tolerated Follow Up/Referral: PCP as soon as possible Hemodialysis on 09/2024 Medications: Continue same home medications Discharge Statement: "Patient was advised to return to the ER or call 911 if any headaches, dizziness, shortness of breath, chest pain, abdominal pain, bleeding, fevers, or worsening of medical condition. Patient was counseled about treatment plan, medications, possible side effects, patientverbalized understanding. All questions were answered to the best of my ability. This discharge took greater then 30 minutes in planning, reviewing documentation, counseling the patient, and discussing with other team members." ASSESSMENT ASSESSMENT Assessment Syncope due to hypotension Hypotension most likely due to a dry state due to dialysis End-stage renal disease on hemodialysis Chronic anemia of chronic kidney disease History of Hypertension Type 2 diabetes COPD AFib History of colon cancer Cardiomegaly Date of Service: October 02, 2024 Billing Provider: YARIEL STOCK MD Common Visit Codes: 62599-EVO/OBS DISCH DAY >30min YARIEL STOCK MD October 02, 2024 13:34
[2024-10-02 13:51] VITALS: BP 145/54; PULSE 67; RESP 16; TEMP 98.2; O2SAT 99
[2024-10-03 11:01] LABS: Hepatitis B Surface Antigen Negative (Negative); Hepatitis C Antibody Negative (Negative)
== END 2024-10-02 14:30 | disposition home or self-care (01) | DRG 312 ==
LOC: EDBD 08:32 → ER 08:32 → EDUNIT# 08:32 → OVERFLOW 14:12 → TELE-CENTR 17:06
DX: I95.3 Hypotension of hemodialysis (principal); N18.6 End stage renal disease; I13.2 Hypertensive heart and chronic kidney disease with heart failure and with stage 5 chronic kidney disease, or end stage renal disease; I50.22 Chronic systolic (congestive) heart failure; G90.89 Other disorders of autonomic nervous system; D63.1 Anemia in chronic kidney disease; E11.22 Type 2 diabetes mellitus with diabetic chronic kidney disease; I48.91 Unspecified atrial fibrillation; I08.1 Rheumatic disorders of both mitral and tricuspid valves; I25.10 Atherosclerotic heart disease of native coronary artery without angina pectoris; J44.89 Other specified chronic obstructive pulmonary disease; E21.3 Hyperparathyroidism, unspecified; Z99.2 Dependence on renal dialysis; Z91.041 Radiographic dye allergy status; Z85.038 Personal history of other malignant neoplasm of large intestine; Z83.3 Family history of diabetes mellitus; Z90.49 Acquired absence of other specified parts of digestive tract
CPT/HCPCS: 36415; 70450; 71045; 80048; 80053; 80202; 82962; 83036; 83605; 84484; 85025; 86803; 87040; 87081; 87340; 93005; 93306; 96365; 96367; 97110; 97116; 97163; 97530; 99291; G0378; J0692; J1815